=== PATIENT | male | born 1960 | race Caucasian/White ===

== ENCOUNTER 2018-05-30 09:25 | Emergency (ER) | payer OTHER ==
[~2018-05-30] VITALS: Ht 182.9 cm; Wt 108.0 kg
[2018-05-30] MEDS ORDERED: KETO10TA2 PO (12:54)
== END 2018-05-30 13:18 | disposition home or self-care (01) ==
LOC: ER 09:25
DX: M79.671 Pain in right foot (principal); M54.89 Other dorsalgia